=== PATIENT | male | born 1990 | race Caucasian/White ===

== ENCOUNTER 2024-04-07 18:44 | Inpatient (IN) ==
--- NOTE | 2024-04-07 18:49 | ED Triage Note ---
Date of Service April 07, 2024 Provider in Triage Author: Chico Mathews History of Present Illness This patient was briefly evaluated while in triage. An abbreviated physical exam was performed. This patient is a 33-year-old Male who presents to the ED for evaluation Friday afternoon developed shortness of breath, vomiting and diarrhea, shaky, chest pressure had shoveled snow continued left chest tightness Physical Exam GENERAL: NAD CARDIOVASCULAR: RRR RESPIRATORY: CTA ABDOMEN: BS x 4. Nontender to palpation. Initial orders for labs and / or imaging were placed and patient was placed in the waiting area until a bed is available. Please see further documentation for the full ED course.
[2024-04-07 19:23] LABS: Basophils # (auto) 0.02 K/uL (0.00-0.20); Basophils % (auto) 0.4 %; Eosinophils # (auto) 0.18 K/uL (0.00-0.50); Eosinophils % (auto) 3.3 %; Hematocrit (blood only) 44.5 % (42.0-52.0); Hemoglobin 15.3 g/dl (14.0-18.0); Immature Granulocytes # (auto) 0.01 K/uL (0.01-0.20); Immature Granulocytes % (auto) 0.2 %; Lymphocytes # (auto) 1.73 K/uL (1.20-3.40); Lymphocytes % (auto) 32.1 %; Mean Corpuscular Hemoglobin 29.8 pg (25.0-34.0); Mean Corpuscular Hgb Conc 34.4 g/dL (32.0-36.0); Mean Corpuscular Volume 86.7 fL (80.0-100.0); Mean Platelet Volume 8.7 fL (9.4-12.4); Monocytes # (auto) 0.93 K/uL (0.11-0.59); Monocytes % (auto) 17.3 %; Neutrophils # (auto) 2.52 K/uL (1.40-6.50); Neutrophils % (auto) 46.7 %; Platelet Count 233 K/uL (130-400); RDW Coefficient of Variation 12.9 % (11.5-14.5); RDW Standard Deviation 40.6 fL (36.4-46.3); Red Blood Count 5.13 M/uL (4.70-6.10); White Blood Count 5.39 K/ul (4.8-10.8)
[2024-04-07 19:33] LABS: Albumin Globulin Ratio 1.6 (0.9-2); Albumin Level 4.5 gm/dl (3.4-5.0); BUN Creatinine Ratio 10.6 (10-20); Bilirubin,Total 0.5 mg/dl (0.2-1.0); Calcium 8.6 mg/dl (8.6-10.3); Creatinine Clr Calc Pharmacy 92.8 ml/min; Globulin 2.8 gm/dl (2.5-4.0); Potassium 3.1 mmol/L (3.5-5.1); Total Protein 7.3 gm/dl (6.0-8.3)
[2024-04-07 19:44] LABS: Troponin I High Sensitivity 188.6 pg/ml (0-20)
--- NOTE | 2024-04-07 20:05 | Emergency Department Note ---
History of Present Illness General Chief Complaint: Cardiac Assessment Stated Complaint: CHEST TIGHTNESS, Time Seen by Provider: 04/07/24 19:52 History of Present Illness Provider Complaint: chest pain Onset (ago): day(s) 2 Duration: intermittent Onset: during exertion (Occurred after shoveling snow) Pain Location: substernal Pain Radiation: none Maximum Pain Intensity: 2 Current Pain Intensity: 1 Quality: + heaviness Relieved By: + rest Exacerbated By: + exertion Context: no recent illness, no recent surgery, no recent immobilization, no recent travel, no trauma/injury or no history of DVT/PE Associated symptoms: + nausea, + vomiting, + dyspnea and + other (Diarrhea); no syncope, no fever or no cough No melena hematochezia fever hematuria. No hemoptysis. Allergies Allergy/AdvReac Type Severity Reaction Status Date / Time No Known Allergies Allergy Verified 04/07/24 18:50 Past Med/Surg History Problem List (Updated 04/07/24 @ 20:46 by Nelson Teran MD) Non-ST elevation [place] (NSTEMI) (Acute) Medical History No pertinent family history No significant past medical history Surgical History No pertinent past surgical history Social History Smoking Status: Never smoker Feels Safe at Home: Yes Physical Exam Vital Signs Vital Signs - 24 hr 04/07/24 18:47 04/07/24 19:01 04/07/24 19:40 Temperature 36.7 C Temperature Source Temporal Artery Scan Pulse Rate 93 H Pulse Rate [Right Finger] 86 Pulse Rhythm Pulse Rhythm [Right Finger] Regular Pulse Strength [Right Finger] Normal Respiratory Rate 16 14 Respiratory Effort / Characteristics Non-Labored Spontaneous Non-Labored Respiratory Depth Normal Normal Respiratory Pattern Regular Blood Pressure 138/86 Blood Pressure [Left Arm] 135/80 Blood Pressure Mean 103 Blood Pressure Mean [Left Arm] 98 Blood Pressure Position Sitting Blood Pressure Position [Left Arm] Lying Pulse Oximetry 99 99 100 Oxygen Delivery Method Room Air Room Air Sepsis Recent Fever Within 48 Hours No Sepsis New/Unexplained Change in Mental Status N/A Sepsis Action Taken by Nursing No Action Required 04/07/24 19:40 04/07/24 19:54 Temperature Temperature Source Pulse Rate 86 88 Pulse Rate [Right Finger] Pulse Rhythm Regular Pulse Rhythm [Right Finger] Pulse Strength [Right Finger] Respiratory Rate 17 Respiratory Effort / Characteristics Respiratory Depth Respiratory Pattern Blood Pressure Blood Pressure [Left Arm] Blood Pressure Mean Blood Pressure Mean [Left Arm] Blood Pressure Position Blood Pressure Position [Left Arm] Pulse Oximetry 99 Oxygen Delivery Method Room Air Sepsis Recent Fever Within 48 Hours Sepsis New/Unexplained Change in Mental Status Sepsis Action Taken by Nursing Physical Exam GENERAL: oriented to person, place, and time. appears well-developed and well- nourished. HENT: Exam performed. - Head: Normocephalic and atraumatic. EYES: Conjunctivae and EOM are normal. Right eye exhibits no discharge. Left eye exhibits no discharge. No scleral icterus. NECK: Normal range of motion. Neck supple. No JVD present. CV: Normal rate, regular rhythm, normal heart sounds and intact distal pulses. There is no peripheral edema. Palpable radial pulses bue. PULM/CHEST: Effort normal and breath sounds normal. No respiratory distress. No stridor. no wheezes. no rales. ABD: The abdomen is soft. There is no tenderness. NEURO: Motor and sensation grossly intact. SKIN: Skin is warm and dry. He is not diaphoretic. PSYCH: normal mood and affect. Behavior is normal. Judgment and thought content normal. Course Course 1951: The patient was evaluated in room C6. A complete history and physical exam was performed Cardiac monitoring: An order was placed for continuous cardiac monitoring. The monitor shows a rate of 70 with sinus rhythm interpreted by me Patient was seen during a time of extreme volume and extreme acuity. Nursing triage protocols were initiated labs and imaging was conducted by protocol in the triage area. Vital signs stable. Patient not currently reporting any chest pain.Labs are significant for potassium 3.1, keep potassium repleted in the emergency department. High-sensitivity troponin elevated 180.6. Patient not reporting any chest pain or difficulty breathing at this time. Patient will be admitted to the hospitalist team for cardiology evaluation in the morning. 2009: Discussed case with [facility] hospitalist Dr. Person who asks that I speak with cardiology if we should start heparin on the patient. 2032: Vital signs stable. Patient reports no chest pain or difficulty breathing at this time. He reports no drug or cocaine usage. Discussed case with on-call [facility] cardiology Dr. More and he states to start heparin on the patient since there is no contraindication. Heparin bolus and drip will be ordered. Dr. Person at bedside and was made aware of Dr. More's recommendations. Administered Medications Discontinued Medications Aspirin (Aspirin 81 Mg Chew) 324 mg PO NOW STA Stop: 04/07/24 20:06 Last Admin: 04/07/24 20:10 Dose: 324 mg Documented By: SUZANNA Potassium Chloride (Potassium Chloride 10 Meq Tabcr) 40 meq PO NOW STA Stop: 04/07/24 20:06 Last Admin: 04/07/24 20:10 Dose: 40 meq Documented By: SUZANNA Medical Decision Making Laboratory Data Attestation: I reviewed the patient's lab results. 04/07/24 19:05 04/07/24 19:05 Labs: Lab Results 04/07/24 Range/Units 19:05 WBC 5.39 (4.8-10.8) K/ul RBC 5.13 (4.70-6.10) M/uL Hgb 15.3 (14.0-18.0) g/dl Hct 44.5 (42.0-52.0) % MCV 86.7 (80.0-100.0) fL MCH 29.8 (25.0-34.0) pg MCHC 34.4 (32.0-36.0) g/dL RDW Std Deviation 40.6 (36.4-46.3) fL RDW Coeff of Rachel 12.9 (11.5-14.5) % Plt Count 233 (130-400) K/uL MPV 8.7 L (9.4-12.4) fL Immature Gran % (Auto) 0.2 % Neut % (Auto) 46.7 % Lymph % (Auto) 32.1 % [place] % (Auto) 17.3 % Eos % (Auto) 3.3 % Baso % (Auto) 0.4 % Neut # (Auto) 2.52 (1.40-6.50) K/uL Lymph # (Auto) 1.73 (1.20-3.40) K/uL [place] # (Auto) 0.93 H (0.11-0.59) K/uL Eos # (Auto) 0.18 (0.00-0.50) K/uL Baso # (Auto) 0.02 (0.00-0.20) K/uL Immature Gran # (Auto) 0.01 (0.01-0.20) K/uL Sodium 138 (136-145) mmol/L Potassium 3.1 L (3.5-5.1) mmol/L Chloride 103 (98-107) mmol/L Carbon Dioxide 27 (21-32) mmol/L Anion Gap 8 (3-11) BUN 9 (6-23) mg/dl Creatinine 0.85 (0.6-1.4) mg/dl Est Cr Clr Drug Dosing 92.8 ml/min eGFR 118.40 BUN/Creatinine Ratio 10.6 (10-20) Glucose 95 (70-99(Fasting)) mg/dl Calcium 8.6 (8.6-10.3) mg/dl Total Bilirubin 0.5 (0.2-1.0) mg/dl AST 37 (13-39) U/L ALT 55 H (7-52) U/L Alkaline Phosphatase 64 (34-104) U/L Troponin I High Sens 188.6 H* (0-20) pg/ml Total Protein 7.3 (6.0-8.3) gm/dl Albumin 4.5 (3.4-5.0) gm/dl Globulin 2.8 (2.5-4.0) gm/dl Albumin/Globulin Ratio 1.6 (0.9-2) Imaging Data Chest x-ray: Attestation: I personally reviewed and interpreted this imaging study as follows: My impression: Chest x-ray negative. Airway clear. No pneumothorax. No consolidation. No cardiomegaly or cephalization.. No free air under the diaphragm. No fractures of the skeletal structures. ECG Data Attestation: I personally reviewed and interpreted this ECG as follows: Indication: chest pain Rate (beats per minute): 70 Rhythm: normal sinus Findings: no ST depression, no ST elevation or no prolonged QT Additional Comments: MO 104 QRS 90 QTc [address]. No delta wave [facility] Narrative 1951: The patient was evaluated in room C6. A complete history and physical exam was performed Cardiac monitoring: An order was placed for continuous cardiac monitoring. The monitor shows a rate of 70 with sinus rhythm interpreted by me Patient was seen during a time of extreme volume and extreme acuity. Nursing triage protocols were initiated labs and imaging was conducted by protocol in the triage area. Vital signs stable. Patient not currently reporting any chest pain.Labs are significant for potassium 3.1, keep potassium repleted in the emergency department. High-sensitivity troponin elevated 180.6. Patient not reporting any chest pain or difficulty breathing at this time. Patient will be admitted to the hospitalist team for cardiology evaluation in the morning. 2009: Discussed case with [facility] hospitalist Dr. Person who asks that I speak with cardiology if we should start heparin on the patient. 2032: Vital signs stable. Patient reports no chest pain or difficulty breathing at this time. He reports no drug or cocaine usage. Discussed case with on-call [facility] cardiology Dr. More and he states to start heparin on the patient since there is no contraindication. Heparin bolus and drip will be ordered. Dr. Person at bedside and was made aware of Dr. More's recommendations. Impression & Plan Non-ST elevation [place] (NSTEMI) Critical Care Time Critical Care Time: Yes Total Critical Care Time: 38 I have personally spent greater than [] minutes of critical care time in the direct management of this patient. This includes bedside care, interpretation of diagnostic studies, and testing, discussion with consultants, patient, and family members, and other required patient management activities. This [] minutes is in excess of all separately billable procedures. Discharge Plan Visit Data Chief Complaint: Cardiac Assessment Stated Complaint: CHEST TIGHTNESS, ED Provider: Nelson Teran Discharge Problem: Non-ST elevation [place] (NSTEMI) Patient Disposition: Being Evaluated by Hospitalist Forms Stand Alone Forms: My [facility] Referrals Referrals: PCP,NO [Physician] - Discharge Problem:
[2024-04-07] MEDS: POTASSIUM CHLORIDE 10 MEQ TABCR PO STA (20:10)
[2024-04-07] MEDS: ASPIRIN 81 MG CHEW PO STA (20:10)
[2024-04-07] MEDS ORDERED: HEPARIN SOD (PORCINE) 1000 UNIT/ML IV ONE (20:48)
--- NOTE | 2024-04-07 20:56 | History & Physical Report ---
Date of Service April 07, 2024 Assessment & Plan (1) Non-ST elevation [place] (NSTEMI): Plan: 33-year-old male with no significant past medical history presents with chest pains and found to have elevated troponins. Patient states last Friday morning after he shoveled snow he felt somewhat off. Then in the afternoon he started to feel chest heaviness, shortness of breath, was feeling dizzy ,somewhat sweaty and numbness in the hands and feet. Then he had a episode of diarrhea and then vomiting. After vomiting his chest heaviness seems to improved and then he had another episode of vomiting. He thought he might had food poisoning. He woke up on Friday morning with some chest soreness which he thought was from vomiting and he took half dose of ibuprofen and another full dose of ibuprofen in the night and chest pain got resolved. Today he wanted to check out because of the chest pain and shortness of breath and came to the ER. Currently has some mild discomfort in the left side of the chest but otherwise no other symptoms. Micturating okay. Day afebrile. Denies any headache. No runny nose or sore throat. No cough. Is ambulating okay. Denies any chest discomfort while ambulating. No history of smoking. Currently resting comfortably and hemodynamically stable. Appetite is down since Friday. Non-ST elevated [place] Presents with chest pain and shortness of breath Symptoms happened after snow shoveling Currently mostly asymptomatic EKG no acute findings Initial troponin 188 Got full dose aspirin in ER and started on IV heparin Will monitor on telemetry Will follow serial cardiac enzymes and echo and d dimer Will keep him n.p.o. Consult cardiology in a.m. for further recommendations Close monitor DVT prophylaxis On IV heparin Disposition Telemetry Full code. History of Present Illness Chief Complaint: Chest pains and elevated troponin Primary Care Provider: Megan Christian PA-C 33-year-old male with no significant past medical history presents with chest pains and found to have elevated troponins. Patient states last Friday morning after he shoveled snow he felt somewhat off. Then in the afternoon he started to feel chest heaviness, shortness of breath, was feeling dizzy ,somewhat sweaty and numbness in the hands and feet. Then he had a episode of diarrhea and then vomiting. After vomiting his chest heaviness seems to improved and then he had another episode of vomiting. He thought he might had food poisoning. He woke up on Friday morning with some chest soreness which he thought was from vomiting and he took half dose of ibuprofen and another full dose of ibuprofen in the night and chest pain got resolved. Today he wanted to check out because of the chest pain and shortness of breath and came to the ER. Currently has some mild discomfort in the left side of the chest but otherwise no other symptoms. Micturating okay. Day afebrile. Denies any headache. No runny nose or sore throat. No cough. Is ambulating okay. Denies any chest discomfort while ambulating. No history of smoking. Currently resting comfortably and hemodynamically stable. Appetite is down since Friday. Past medical history. As mentioned above Past surgical history. No surgical history on file. Social history. Denies smoking. Alcohol 3 drinks a week. Denies any drug use. Family history. Mother had breast cancer. Skin cancer. Father had depression. Hearing loss. Maternal grandmother had migraines. Skin cancer. Maternal grandfather had bladder cancer. Paternal grandmother had skin cancer. Allergies Allergy/AdvReac Type Severity Reaction Status Date / Time No Known Allergies Allergy Verified 04/07/24 18:50 Home Medications Medication Instructions Recorded Confirmed Type No Known Home Medications 04/07/24 04/07/24 History Past Med/Surg History Problem List (Updated 04/07/24 @ 20:46 by Nelson Teran MD) Non-ST elevation [place] (NSTEMI) (Acute) Medical History No pertinent family history No significant past medical history Surgical History No pertinent past surgical history Social History Smoking Status: Never smoker Second Hand Exposure: No; Do You Dip or Chew Tobacco: No; Tobacco Cessation Education Requested by Patient: No Hx Alcohol Use: Yes Alcohol type: beer Hx Substance Use: No Preferred Language: Greek Communication Ability: Effective 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 ENT- oropharynx clear Neck- supple, no JVD. Lungs- clear to auscultation no wheezing or crackles Heart- regular rate and rhythm; no murmur, no gallop. Abdomen- normal bowel sounds, soft, nontender, no distension. Extremities- no pretibial edema, no erythema seen. Neuro- alert, oriented ; PERRL, no facial palsy; no dysarthria; moves e xtremities. Results & Data Results & Data Vital Signs (Past 12 Hours) Vital Signs Temp Pulse Pulse Resp BP BP Pulse Ox 04/07/24 19:54 88 04/07/24 19:40 86 17 99 04/07/24 19:40 86 14 135/80 100 04/07/24 19:01 99 04/07/24 18:47 36.7 C 93 H 16 138/86 99 O2 Del Method 04/07/24 19:54 04/07/24 19:40 Room Air 04/07/24 19:40 Room Air 04/07/24 19:01 04/07/24 18:47 Room Air Diagnostic Findings Laboratory Results WBC 5.39 K/ul (4.8-10.8) 04/07/24 19:05 RBC 5.13 M/uL (4.70-6.10) 04/07/24 19:05 Hgb 15.3 g/dl (14.0-18.0) 04/07/24 19:05 Hct 44.5 % (42.0-52.0) 04/07/24 19:05 MCV 86.7 fL (80.0-100.0) 04/07/24 19:05 MCH 29.8 pg (25.0-34.0) 04/07/24 19:05 MCHC 34.4 g/dL (32.0-36.0) 04/07/24 19:05 RDW Std Deviation 40.6 fL (36.4-46.3) 04/07/24 19:05 RDW Coeff of Rachel 12.9 % (11.5-14.5) 04/07/24 19:05 Plt Count 233 K/uL (130-400) 04/07/24 19:05 MPV 8.7 fL (9.4-12.4) L 04/07/24 19:05 Immature Gran % (Auto) 0.2 % 04/07/24 19:05 Neut % (Auto) 46.7 % 04/07/24 19:05 Lymph % (Auto) 32.1 % 04/07/24 19:05 [place] % (Auto) 17.3 % 04/07/24 19:05 Eos % (Auto) 3.3 % 04/07/24 19:05 Baso % (Auto) 0.4 % 04/07/24 19:05 Neut # (Auto) 2.52 K/uL (1.40-6.50) 04/07/24 19:05 Lymph # (Auto) 1.73 K/uL (1.20-3.40) 04/07/24 19:05 [place] # (Auto) 0.93 K/uL (0.11-0.59) H 04/07/24 19:05 Eos # (Auto) 0.18 K/uL (0.00-0.50) 04/07/24 19:05 Baso # (Auto) 0.02 K/uL (0.00-0.20) 04/07/24 19:05 Immature Gran # (Auto) 0.01 K/uL (0.01-0.20) 04/07/24 19:05 Sodium 138 mmol/L (136-145) 04/07/24 19:05 Potassium 3.1 mmol/L (3.5-5.1) L 04/07/24 19:05 Chloride 103 mmol/L (98-107) 04/07/24 19:05 Carbon Dioxide 27 mmol/L (21-32) 04/07/24 19:05 Anion Gap 8 (3-11) 04/07/24 19:05 BUN 9 mg/dl (6-23) 04/07/24 19:05 Creatinine 0.85 mg/dl (0.6-1.4) 04/07/24 19:05 Est Cr Clr Drug Dosing 92.8 ml/min 04/07/24 19:05 eGFR 118.40 04/07/24 19:05 BUN/Creatinine Ratio 10.6 (10-20) 04/07/24 19:05 Glucose 95 mg/dl (70-99(Fasting)) 04/07/24 19:05 Calcium 8.6 mg/dl (8.6-10.3) 04/07/24 19:05 Total Bilirubin 0.5 mg/dl (0.2-1.0) 04/07/24 19:05 AST 37 U/L (13-39) 04/07/24 19:05 ALT 55 U/L (7-52) H 04/07/24 19:05 Alkaline Phosphatase 64 U/L (34-104) 04/07/24 19:05 Troponin I High Sens 188.6 pg/ml (0-20) H* 04/07/24 19:05 Total Protein 7.3 gm/dl (6.0-8.3) 04/07/24 19:05 Albumin 4.5 gm/dl (3.4-5.0) 04/07/24 19:05 Globulin 2.8 gm/dl (2.5-4.0) 04/07/24 19:05 Albumin/Globulin Ratio 1.6 (0.9-2) 04/07/24 19:05 ECG Additional Comments: ECG. Normal sinus rhythm with short IA rate of 70. No acute ST changes seen. Code Status & VTE Plan VTE Prophylaxis Plan VTE Prophylaxis will be ordered: Yes
[2024-04-07] MEDS: HEPARIN SOD (PORCINE) 1000 UNIT/ML IV ONE (21:14)
[2024-04-07] MEDS: HEPARIN SODIUM/DEXTROSE 25,000 UNITS/500 ML BAG IV SCH (21:15)
[2024-04-07 21:16] LABS: Amphetamines+Metham, Urine Neg (Neg); Barbiturates, Urine Neg (Neg); Benzodiazepine, Urine Neg (Neg); Cocaine, Urine Neg (Neg); Fentanyl, Urine Neg (Neg); MDMA (Ecstacy), Urine Neg (Neg); Marijuana, Urine Neg (Neg); Methadone, Urine Neg (Neg); Opiate, Urine Neg (Neg); Phencyclidine, Urine Neg (Neg)
--- NOTE | 2024-04-07 21:16 | XRay Report ---
Exam(s): XR CXR 1 VIEW EXAM: XR Chest, 1 View CLINICAL HISTORY: Chest Pain. TECHNIQUE: Frontal view of the chest. COMPARISON: No relevant prior studies available. FINDINGS: Lungs: Unremarkable. No consolidation. Pleural space: Unremarkable. No pneumothorax. Heart: Unremarkable. No cardiomegaly. Mediastinum: Unremarkable. Normal mediastinal contour. Bones/joints: Mild degenerative changes of the spine are noted. No acute fracture. IMPRESSION: No acute findings in the chest. Electronically signed by: Ana Hubbard MD 04/07/24 21:14 PM
[2024-04-07 21:58] LABS: ANTI-Xa, UFH(UnfractionatedHep < 0.10 IU/ml (0.3-0.7); D Dimer 280 ug/L FEU (0-500); Partial Thromboplastin Time 28 Seconds (21-31); Prothrombin Time 10.9 Seconds (9.0-12.0)
[2024-04-07] MEDS ORDERED: ACETAMINOPHEN 325 MG TAB PO PRN (22:13)
[2024-04-07] MEDS ORDERED: POLYETHYLENE (MIRALAX) 17 GM PACK PO PRN (22:13)
[2024-04-07] MEDS ORDERED: NITROGLYCERIN SL 0.4 MG/TAB TAB SL PRN (22:13)
[2024-04-07] MEDS ORDERED: INFLUENZA VACC TS2024-25(6m+)/PF (IIV3) 0.5mL Syr IM ONE (22:32)
[2024-04-08 03:59] LABS: Basophils # (auto) 0.02 K/uL (0.00-0.20); Basophils % (auto) 0.4 %; Eosinophils # (auto) 0.09 K/uL (0.00-0.50); Eosinophils % (auto) 1.8 %; Hematocrit (blood only) 42.6 % (42.0-52.0); Hemoglobin 14.6 g/dl (14.0-18.0); Lymphocytes # (auto) 1.99 K/uL (1.20-3.40); Lymphocytes % (auto) 40.8 %; Mean Corpuscular Hemoglobin 29.8 pg (25.0-34.0); Mean Corpuscular Hgb Conc 34.3 g/dL (32.0-36.0); Mean Corpuscular Volume 86.9 fL (80.0-100.0); Mean Platelet Volume 8.6 fL (9.4-12.4); Monocytes # (auto) 0.75 K/uL (0.11-0.59); Monocytes % (auto) 15.4 %; Neutrophils # (auto) 2.03 K/uL (1.40-6.50); Neutrophils % (auto) 41.6 %; Platelet Count 219 K/uL (130-400); RDW Coefficient of Variation 12.8 % (11.5-14.5); RDW Standard Deviation 40.5 fL (36.4-46.3); White Blood Count 4.88 K/ul (4.8-10.8)
[2024-04-08 04:17] LABS: BUN Creatinine Ratio 13.4 (10-20); Calcium 8.7 mg/dl (8.6-10.3); Chol HDL Ratio 1.9 (0-5); Creatinine Clr Calc Pharmacy 96.2 ml/min; Magnesium 2.1 mg/dl (1.7-2.4)
[2024-04-08 04:22] LABS: ANTI-Xa, UFH(UnfractionatedHep 0.44 IU/ml (0.3-0.7)
[2024-04-08 04:27] LABS: Troponin I High Sensitivity 146.2 pg/ml (0-20)
[2024-04-08] MEDS: Heparin IV Adult Wt-Based Low-Dose w/ INITIAL Bolus Protocol IV STA (05:29)
--- NOTE | 2024-04-08 08:39 | Cardiology Consultation ---
Date of Consultation April 08, 2024 Assessment & Plan (1) Elevated troponin: (2) Atypical chest pain: Plan 33-year-old male - No prior cardiac history - No significant risk factors - No family history of premature CAD - Preceding viral type illness - Atypical chest pain (? musculoskeletal +/- very mild myocarditis) - Mildly elevated and downtrending troponin - Benign telemetry Recommendations: Refer for resting echocardiography then likely stress testing. Supervising Physician Co-Signing Physician Notes I have personally performed a history and physical examination on the patient. I have reviewed the advance practitioner's documentation, and I agree with, and take responsibility for the plan of care. 33-year-old male with no prior cardiac history presenting to the emergency department with viral illness, nausea, vomiting, diarrhea and atypical, most likely musculoskeletal chest discomfort. Cardiology consultation was requested due to mildly elevated high-sensitivity troponin. ECG without ischemic changes. Echocardiogram demonstrates normal LV function and wall motion. No events on telemetry Further evaluation of elevated troponin discussed. Patient prefers to avoid any invasive procedures at this time. Agreeable to exercise stress echocardiography. Consider cardiac CT as outpatient. Further recommendations pending results of stress echo. Thank you for allow me to participate in the care of your patient. Chandler More DO, [facility] History of Present Illness Reason for Consultation: NSTEMI Requesting Physician: [facility] Hospitalist Dr. Raza Robb Attending Physician: [facility] Hospitalist Service, Dr. Manan Carballo MD History of Present Illness Gonzalo Ospina is a 33-year-old male patient who was in his usual state until he began to feel off on Friday, April 05, 2024. On Friday he awoke and felt OK. After breakfast he removed the snow from the driveway and did some normal things around the house. He notes moving furniture around to get ready for a chest freezer that was being delivered later that day. He notes not eating lunch due to feeling "off." Around 2-3 in the afternoon he noticed some heavy breathing. He describes feeling the need to take deeper breaths. He checked his temperature and found it to be normal. He has a home pulse oximetry and observed a normal heart rate as well as normal oxygen saturation of 97 to 87%. At that time he began to feel pressure across his whole entire chest as well as numbness in all extremities. He had his check him and say no facial droop and he notes no issues with his speech. He then began to feel shaky. He notes that he began to "freak out." He then sat down and watch TV with his . At that point he felt the need to use the bathroom and had what he describes as "fast and violent diarrhea" which was followed by some nausea and one episode of mild emesis. After the emesis he felt completely back to normal. Thereafter he picked up his daughter at daycare and went about his day. Later that night he had some recurrent nausea. He notes not sleeping well, awaking Friday to his entire chest and torso hurting, and ache. He took one half of the Advil with resolution of the discomfort, taking another Advil bed, also with benefit. Friday he stayed home because he did not have to go into work. He describes taking it easy and sleeping in the afternoon which is not something he normally does not do Thereafter he started to think and question his symptoms over the last couple of days and decided to present to the ER for further cardiac evaluation. EKG in the ER revealed sinus rhythm at 70 with a short W[place] interval. Isolated T wave inversion noted in V3. High-sensitivity troponin elevated at 188.6 pg/mL. Aspirin was administered in the ER and IV heparin was initiated. Repeat troponin was 183.6 pg/mL. The third troponin was 142.2 pg/mL. Chest x-ray showed no acute findings. EKG this morning reveals normal sinus rhythm at 75 bpm. Continuous telemetry monitoring revealed sinus/sinus tachycardia throughout, heart rates predominantly in the 60 to 100 bpm range. No significant arrhythmias observed. Up until Friday the patient had been active to his level preference without difficulty. He describes his activity level as "moderately active." He notes doing a 5K in September, running the race in 28 minutes without difficulty. He walks regularly. He notes hiking [employer] in January without difficulty. He describes himself as a stressed person, sort of a hypochondriac. No history of hypertension, dyslipidemia, type 2 diabetes mellitus, CAD, DE, CHF, arrhythmia, heart murmur, rheumatic fever, or scarlet fever. No family history of premature CAD or sudden cardiac . Past Medical and Surgical History Transient microscopic hematuria evaluated by urology, benign findings Family History: Father is alive without cardiac issues, history of gout. Mother had breast cancer diagnosed 24 years ago, now with stage IV bone cancer. Paternal grandparents lived into their late 80s or early 90s, details unknown. Maternal grandfather had bladder cancer, passing in his 70s. Maternal grandmother is alive at 93. Social History: Never smoker. No smokeless tobacco. Alcohol: 3 drinks per week typically. No illegal/illicit drug use. . 1 daughter. 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 Allergies Allergy/AdvReac Type Severity Reaction Status Date / Time No Known Allergies Allergy Verified 04/07/24 18:50 Home Medications Medication Instructions Recorded Confirmed Type No Known Home Medications 04/07/24 04/07/24 History Patient History Medical History No pertinent family history No significant past medical history Surgical History No pertinent past surgical history Social History Smoking Status: Never smoker Second Hand Exposure: No; Do You Dip or Chew Tobacco: No; Tobacco Cessation Education Requested by Patient: No Hx Alcohol Use: Yes Alcohol type: beer Hx Substance Use: No Preferred Language: Malay Communication Ability: Effective Outside Sales Engineer Required: No Beliefs That Will Affect Care: None Current Living Situation: Spouse and Family Other Information That Helps Us Care for You: No Feels Safe at Home: Yes Safety Concerns: Feels Safe At This Time Assistive Devices: None Review of Systems Review of Systems: Complete Review of Systems: Constitutional: No night sweats. HEENT: No amaurosis fugax. Pulmonary: No history of asthma. No history of PE. Cardiac: No prior cardiac history. GI/Abd: No dysphagia. No melana or hematochezia. No kidney problems. No liver problems. No history of pancreatic issues. Vascular: Cold distal extremities. Hematologic: No coagulation disorder, anemia, or abnormal bleeding. Musculoskeletal: Negative. Skin: No rash. Neurologic: No history of seizure disorder. Male : See above. Endocrine: No history of diabetes mellitus. No thyroid trouble. Complete Review of Systems is as stated above, negative, or noncontributory Physical Exam Physical Exam: General: A&Ox3. NAD. HENT: Normocephalic. Atraumatic. Eyes: PER. Conjunctiva pink, sclera clear. Neck: No carotid bruits. No JVD. No HJR. Heart: RRR, 84 bpm. No murmur. No rub. No gallop. PMI is nondisplaced. Lungs: Clear to auscultation. Abdomen: +BS. No organomegaly. Extremities: No clubbing, cyanosis, or edema. Limited neurological examination is without focal deficits. Pulses: radial=3/4, posterior tibial=3/4. Results & Data Vital Signs (Past 12 Hours) Vital Signs Temp Pulse Pulse Resp BP BP Pulse Ox 04/08/24 08:19 90 04/08/24 07:28 36.7 C 79 16 106/65 98 04/08/24 03:00 36.7 C 89 18 116/75 98 04/07/24 23:55 96 H 04/07/24 22:21 36.9 C 99 H 15 129/83 100 04/07/24 21:05 81 116/70 99 O2 Del Method 04/08/24 08:19 04/08/24 07:28 Room Air 04/08/24 03:00 Room Air 04/07/24 23:55 04/07/24 22:21 Room Air 04/07/24 21:05 Room Air Laboratory Results Cardiac Enzymes 04/07/24 04/07/24 04/08/24 Range/Units 19:05 21:06 03:44 AST 37 (13-39) U/L Troponin I High Sens 188.6 H* 183.6 H* 146.2 H* D (0-20) pg/ml Coagulation 04/07/24 Range/Units 20:51 PT 10.9 (9.0-12.0) Seconds APTT 28 (21-31) Seconds Lipids 04/08/24 Range/Units 03:44 Triglycerides 65 (0-150) mg/dl Cholesterol 134 (0-200) mg/dl HDL Cholesterol 70 mg/dl Cholesterol/HDL Ratio 1.9 (0-5) CBC 04/07/24 04/08/24 Range/Units 19:05 03:44 WBC 5.39 4.88 (4.8-10.8) K/ul RBC 5.13 4.90 (4.70-6.10) M/uL Hgb 15.3 14.6 (14.0-18.0) g/dl Hct 44.5 42.6 (42.0-52.0) % Plt Count 233 219 (130-400) K/uL Neut # (Auto) 2.52 2.03 (1.40-6.50) K/uL Lymph # (Auto) 1.73 1.99 (1.20-3.40) K/uL [place] # (Auto) 0.93 H 0.75 H (0.11-0.59) K/uL Eos # (Auto) 0.18 0.09 (0.00-0.50) K/uL Baso # (Auto) 0.02 0.02 (0.00-0.20) K/uL Comprehensive Metabolic Panel 04/07/24 04/08/24 Range/Units 19:05 03:44 Sodium 138 140 (136-145) mmol/L Potassium 3.1 L 4.0 D (3.5-5.1) mmol/L Chloride 103 107 (98-107) mmol/L Carbon Dioxide 27 24 (21-32) mmol/L BUN 9 11 (6-23) mg/dl Creatinine 0.85 0.82 (0.6-1.4) mg/dl Glucose 95 90 (70-99(Fasting)) mg/dl Calcium 8.6 8.7 (8.6-10.3) mg/dl AST 37 (13-39) U/L ALT 55 H (7-52) U/L Alkaline Phosphatase 64 (34-104) U/L Total Protein 7.3 (6.0-8.3) gm/dl Albumin 4.5 (3.4-5.0) gm/dl Intake and Output 04/07/24 04/08/24 04/08/24 22:59 06:59 14:59 Intake Total 107.033 / 107.033 20.367 / 20.367 Balance 107.033 / 107.033 20.367 / 20.367 Intake: IV 107.033 / 107.033 20.367 / 20.367 Heparin Sodium/Dextrose 25,000 107.033 / 107.033 20.367 / 20.367 units In 500 ml @ 650 UNITS/HR 13 mls/hr IV .Q24H [facility] Rx#: [id number] Other: Weight 52.6 kg 50.439 kg Weight Measurement Method [facility] Built in [facility]
[2024-04-08] MEDS: ASPIRIN 81 MG ECTAB PO SCH (09:32)
--- OUTSIDE RECORDS SUMMARY | 2024-04-08 10:30 | External Medical Summary ---
Author Name Unknown Address Unknown Organization [id number][place] [place] [address] [place] [address] Laboratory Report Ordering Provider Test Date Status 10/15/2023 15:37:04 Final Observation Date Value Abnormality Reference (Units) Status Bacteria identified in Specimen by Culture 10/15/2023 15:37:04 No significant growth Final Test: Culture, Urine, Quant itative
Specimen Source: Urine, Clean Catch
Specimen Type: Urine
Specimen Date: 10/15/2023 1537
Result Date: 10/16/2023 1804
Result Status: Final result
Resulting Lab: [facility]
[address]
[place] [address]

CULTURE

No significant growth

null Performing Location [facility] [place] [address] [facility] [address]
--- OUTSIDE RECORDS SUMMARY | 2024-04-08 10:30 | External Medical Summary | Summary of Care ---
Author Name Unknown Organization [facility] Address [address] [facility] [place] [address] Phone [phone] Care Team Providers Care Ingredient Handler Name Role Phone Unavailable Primary Care Provider Unavailabl e Reason for Visit * Reason Comments Outpatient Testing Encounter Details Date Type Department Care Team (Late st Contact Info) Description 10/15/2023 3:20 PM EDT Laboratory Laboratory [facility] [address] [place] [address] [facility] [address] [place] [id number] Urinary frequency Allergies No known active allergiesdocumented as of this encounter (statuses as of 10/15/2023) Medications No known medicationsdocumented as of this encounter (statuses as of 10/15/2023) Active Problems Problem Noted Date Diagnosed Date Post-void dribbling 07/15/2023 Microhematuria 07/15/2023 documented as of this encounter (statuses as of 10/15/2023) Immunizations Name Administration Dates Next Due Seasonal Influenza, PF, 6 M & above, IM , (FluLaval or Fluzone) 03/28/2022 TDAP (age 10 and older)(Boostrix) 09/27/2022,04/2012 documented as of this encounter Social History Tobacco Use Types Packs/Day Years Used Date Smoking Tobacco: Never Smokeless Tobacco: Never Alcohol Use Standard Drinks/Week Comments Yes 5 (1 standard drink = 0.6 oz pur e alcohol) occasional Hunger Vital Sign Answer Date Recorded Within the past 12 months, y ou worried that your food would run out before you got the money to buy more. Never true 08/11/19 24 Within the past 12 months, t he food you bought just didn't last and you didn't have money to get more. Never true 08/11/2023 Childcare Answer Date Recorded Do you feel overwhelmed with taking care of a child, family member or friend? No 08/11/2023 Does your family need help f inding childcare? (Household - for ages 0-17 years) Not on file 08/11/2023 Clothing Answer Date Recorded Have you been unable to get clothing when it was really needed? No 08/11/2023 Is your family able to get c lothes or diapers when needed? (Household - for ages 0-17 years) Not on file 08/11/2023 Personal Safety Answer Date Recorded Do you feel unsafe or have concerns for your saf ety? No 08/11/2023 Do you have concerns for you r family's safety? (Household - for ages 0-17 years) Not on file 08/11/2023 Utilities Answer Date Recorded Do you have trouble paying y our heating, water, or electric bill? No 08/11/2023 Is your family able to pay t he heat, water, or electric bill? (Household - for ages 0-17 years) Not on file 08/11/2023 Does your family have access to good internet? (Household - for ages 0-17 years) Not on file 08/11/2023 Employment Status Answer Date Recorded Are you unemployed or without regular income? No 08/11/2023 Does the household have a re gular source of income? (Household - for ages 0-17 years) Not on file 08/11/2023 Social Connections Answer Date Recorded How often do you feel lonely or isolated from those around you? Sometimes 08/11/2023 Financial Resource Strain Answer Date R ecorded Do you have any trouble payi ng for your medications, or do you think you might in the future? No 08/11/2023 Does your family have troubl e paying for medicine? (Household - for ages 0-17 years) Not on file 08/11/2023 Transportation Needs Answer Date Record ed READ ONLY Do you have troubl e getting a ride to medical visits or work? Never True 08/11/2023 Does your family have a hard time getting a ride to doctors visits? (Household - for ages 0-17 years) Not on file 08/11/2023 Has lack of transportation k ept you from medical appointments, meetings, work, or from getting things needed for daily living? Check all that apply. (Adult - for ages 18 years and over) Not on file 08/11/2023 Do you (or your family) have trouble finding or paying for a ride (transportation)? (Household - for ages 0-17 years) Not on file 08/11/2023 Housing Stability Answer Date Recorded Do you currently live in a s helter or have no steady place to sleep at night? No 08/11/2023 READ ONLY Do you think you a re at risk of becoming homeless? No 08/11/2023 Does your family worry about paying for your home or becoming homeless? (Household - for ages 0-17 years) Not on file 0 08/11/2023 Are you homeless or worried that you might be in the future? (Adult - for ages 18 years and over) Not on file Are you (or your family) janice eless or worried that you might be in the future? (Household - for ages 0-17 years) Not on file Food Insecurity Answer Date Recorded Do you need food for this week? No 08/11/2023 Are you able to get enough f ood for your family? (Household - for ages 0-17 years) Not on file 08/11/2023 Does your family need food t his week? (Household - for ages 0-17 years) Not on file 08/11/2023 Do you always have enough fo od for your family? (Household - for ages 0-17 years) Not on file 08/11/2023 Sex and Gender Information Value Date Recorded Sex Assigned at Male 08/11/2023 8:54 AM EDT Gender Identity Male 08/11/2023 8:54 AM EDT Sexual Orientation Straight 08/11/2023 8: 54 AM EDT Job Start Date Occupation Industry Not on file Not on file Not on file documented as of this encounter Plan of Treatment Pending Results Name Type Priority Associated Diagnoses Date /Time URINALYSIS, REFLEX TO MICROSCOPIC Lab Routine Urinary frequency 10/15/2023 3:37 PM EDT CULTURE, URINE, QUANTITATIVE Lab Routine Urinary frequency 10/15/2023 3:37 PM EDT Health Maintenance Due Date Last Done Comments Depression Screening 2003 HIV Screening 12/05/2006 Hepatitis C Screening 12/05/2009 Hepatitis B (1 of 3 - 19+ 3-dose series) 12/05/2010 COVID-19 Vaccine (2022-2 4 season) 2022 DTaP,Tdap,and Td Vaccines (3 - Td or Tdap) 09/27/2032 09/27/2022, 04/21/2012 Influenza Vaccine (FLU shot) Completed , 03/28/2022 GARDASIL-HPV IMMUNIZATION SERIES Aged Out No longer eligible b ased on patient's age to complete this topic MENINGOCOCCAL (MENACTRA/MENVEO) Aged Out No longer eligible b ased on patient's age to complete this topic Pneumococcal Vaccine: Pediatrics (0 to 5 Years) and At-Risk Patients (6 to 64 Years) Aged Out No longer eligible b ased on patient's age to complete this topic documented as of this encounter Medical Devices Not on filedocumented as of this encounter Visit Diagnoses Diagnosis Urinary frequency documented in this encounter
--- OUTSIDE RECORDS SUMMARY | 2024-04-08 10:30 | External Medical Summary ---
Author Name Unknown Address Unknown Organization K01[place] [place] [address] [facility] [address] Laboratory Report Ordering Provider Test Date Status 10/15/2023 15:37:04 Final Observation Date Value Abnormality Reference (Units ) Status Color of Urine by Auto 10/15/2023 15:37:04 Colorless Colorless, Light Yellow, Yellow, Dark Yellow Final Clarity, Urine 10/15/2023 15:37:04 Clear Clear Final Glucose [Mass/volume] in Urine by Automated test strip 10/15/2023 15:37:04 Negative Negative (mg/dL) Final Bilirubin.total [Presence] in Urine by Automated test strip 10/15/2023 15:37:04 Negative Negative Final Ketones [Mass/volume] in Urine by Automated test strip 10/15/2023 15:37:04 Negative Negative (mg/dL) Final Specific gravity, Urine 10/15/2023 15:37:04 1.005 1.003-1.030 Final Hemoglobin [Presence] in Urine by Automated test strip 10/15/2023 15:37:04 Negative Negative Final pH, Urine 10/15/2023 15:37:04 7.0 5.0-7.5 (Units) Final Protein [Mass/volume] in Urine by Automated test strip 10/15/2023 15:37:04 Negative Negative (mg/dL) Final Urobilinogen [Mass/volume] in Urine by Automated test strip 10/15/2023 15:37:04 Normal Normal (mg/dL) Final Nitrite [Presence] in Urine by Automated test strip 10/15/2023 15:37:04 Negative Negative Final Leukocyte esterase [Presence] in Urine by Automated test strip 10/15/2023 15:37:04 Negative Negative Final Annotation Comment 10/15/2023 15:37:04 Final Screen negative - Microscopi c not performed. Performing Location [facility] - [address] [facility] [address]
--- OUTSIDE RECORDS SUMMARY | 2024-04-08 10:30 | External Medical Summary | Summary of Care ---
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 Press Operator Name Role Phone Unavailable Primary Care Provider Unavailabl e Reason for Visit * Reason Onset Date Comments Advice 10/14/2023 Encounter Details Date Type Department Care Team (Late st Contact Info) Description 10/14/2023 Telephone Family Practice [facility] [address] [facility] [place] [address] Megan Christian PA-C [address] [facility] [place] [address] Advice Allergies No known active allergiesdocumented as of [...] on file documented as of this encounter Miscellaneous Notes * Telephone Encounter - Sanjuana Mariscal, ILEANA - 10/15/2023 2:18 PM EDT Patient aware and verbalized understanding * Telephone Encounter - Megan Christian PA-C - 10/14/2023 7:35 PM EDT Orders placed. Please inform patient. * Telephone Encounter - Kelle Chauhan RN - 10/14/2023 3:47 PM EDT Copied from Call Details: Patient Gender: Male Testicular Pain: Yes Frequent Urination: Yes Other Symptoms: possibly some slight urine leakage with minor increase in frequency and urge How long have you had these symptoms(s)? approx 1 month Any recent antibiotic use? No Have you tried any over the counter remedies? No Patient's Action(s) What have you done or taken for this problem? Patient advises if no clinic OV is needed and only urinalysis is ordered / recommended will complete that DAYNA as well Hx of post void dribbling, microhematuria. No available appts. Do you want to put in orders? * Telephone Encounter - Eunice Luna OSA - 10/14/2023 11:48 AM EDT No Appointments Available Patient declined appointments?: No What Visit Type is needed? Acute If Acute Visit Type is needed, were surrounding clinics offered to patient (Yes/No)? Yes Was patient offered appointments with other available providers (Yes/No)? Yes See Call Details? (Yes or No): Yes documented in this encounter Plan of Treatment Scheduled Orders Name Type Priority Associated Diagnoses Orde r Schedule URINALYSIS, REFLEX TO MICROSCOPIC Lab Routine Urinary frequency Expected: 10/14/2023, Expires: 10/13/2024 CULTURE, URINE, QUANTITATIVE Lab Routine Urinary frequency Expected: 10/15/2023, Expires: 10/13/2024 Health Maintenance Due Date Last Done Comments [...] of this encounter Visit Diagnoses Diagnosis Urinary frequency- Primary documented in this encounter"
[2024-04-08 11:28] VITALS: O2SAT 99
[2024-04-08 11:39] LABS: ANTI-Xa, UFH(UnfractionatedHep 0.27 IU/ml (0.3-0.7)
--- NOTE | 2024-04-08 15:00 | Hospitalist Progress Note ---
Date of Service April 08, 2024 Assessment & Plan (1) Elevated troponin: Plan: 33-year-old male with no significant past medical history presents with chest pains and found to have elevated troponins. Patient states last Friday morning after he shoveled snow he felt somewhat off. Then in the afternoon he started to feel chest heaviness, shortness of breath, was feeling dizzy ,somewhat sweaty and numbness in the hands and feet. Then he had a episode of diarrhea and then vomiting. After vomiting his chest heaviness seems to improved and then he had another episode of vomiting. He thought he might had food poisoning. He woke up on Friday morning with some chest soreness which he thought was from vomiting and he took half dose of ibuprofen and another full dose of ibuprofen in the night and chest pain got resolved. Today he wanted to check out because of the chest pain and shortness of breath and came to the ER. Currently has some mild discomfort in the left side of the chest but otherwise no other symptoms. Micturating okay. Day afebrile. Denies any headache. No runny nose or sore throat. No cough. Is ambulating okay. Denies any chest discomfort while ambulating. No history of smoking. Currently resting comfortably and hemodynamically stable. Appetite is down since Friday. Presents with chest pain and shortness of breath Symptoms happened after snow shoveling EKG no acute findings Initial troponin 188 and subsequent troponins were unremarkable Got full dose aspirin in ER and started on IV heparin Remains free from any cardiac symptoms since admission and did not have any arrhythmias on monitor Appreciate cardiology input and recommendation Will have a stress echo this afternoon and likely discharge following that DVT prophylaxis On IV heparin Disposition Telemetry Full Code (2) Atypical chest pain: Plan: The chest pain could be musculoskeletal and atypical His symptoms started following a viral illness and also with exertion the pain was noted to be worse with sweating as well (3) Non-ST elevation [place] (NSTEMI): Plan: Mildly elevated troponin without any EKG changes Echocardiogram demonstrates normal LV function and wall motion without any events in telemetry Non-ST elevation [place] has been ruled out Admission and Anticipated Discharge Date Admission Date: April 07, 2024 Subjective 04/08/2024 The patient was seen and examined in telemetry unit He was admitted with exertional chest pain associated with some sweating and dizziness Initial troponin was minimally elevated but subsequent sets did not show any increasing levels He denies any more chest pain since admission Review of Systems Review of Systems: All systems reviewed and are unremarkable except as noted below Physical Exam Physical Exam: Lying in bed without any acute distress Constitutional: average body habitus; not ill appearing Eyes: PERRL, conjunctivae normal, anicteric sclerae ENMT: external ear and nose normal, oropharynx normal Neck: trachea midline, no thyromegaly Respiratory: no respiratory distress Auscultation: lungs clear to auscultation bilaterally Cardiovascular: Rate/Rhythm: regular rate and regular rhythm; not tachycardic Heart Sounds: normal S1 and normal S2; no murmur Extremities: no edema Gastrointestinal (Abdomen): Inspection/Auscultation: normal bowel sounds; abdomen not distended Percussion/Palpation: abdomen soft; abdomen nontender Musculoskeletal: no cyanosis or clubbing, extremities motor strength 5/5 Neurologic: normal touch/pain/proprioception and moves all extremities; no focal motor deficits Lymphatic: no cervical or axillary lymphadenopathy Results & Data Results & Data Vital Signs (Past 12 Hours) Vital Signs Temp Pulse Pulse Resp BP BP Pulse Ox 04/08/24 11:27 36.9 C 68 18 109/71 99 04/08/24 08:19 90 04/08/24 07:28 36.7 C 79 16 106/65 98 04/08/24 03:00 36.7 C 89 18 116/75 98 O2 Del Method 04/08/24 11:27 Room Air 04/08/24 08:19 04/08/24 07:28 Room Air 04/08/24 03:00 Room Air Laboratory Results Short CBC 04/07/24 04/08/24 Range/Units 19:05 03:44 WBC 5.39 4.88 (4.8-10.8) K/ul Hgb 15.3 14.6 (14.0-18.0) g/dl Hct 44.5 42.6 (42.0-52.0) % Plt Count 233 219 (130-400) K/uL BMP 04/07/24 04/08/24 19:05 03:44 Sodium 138 140 Potassium 3.1 L 4.0 D Chloride 103 107 Carbon Dioxide 27 24 BUN 9 11 Creatinine 0.85 0.82 Glucose 95 90 Calcium 8.6 8.7 Liver Function 04/07/24 Range/Units 19:05 Total Bilirubin 0.5 (0.2-1.0) mg/dl AST 37 (13-39) U/L ALT 55 H (7-52) U/L Alkaline Phosphatase 64 (34-104) U/L Albumin 4.5 (3.4-5.0) gm/dl Medications Administered Current Inpatient Medications Acetaminophen (Acetaminophen 325 Mg Tab) 650 mg PO Q4H PRN PRN Reason: Pain or Fever Stop: 05/07/24 22:12 Aspirin (Aspirin 81 Mg Ectab) 81 mg PO QAM MADDY Stop: 05/08/24 08:59 Last Admin: 04/08/24 09:32 Dose: 81 mg Nitroglycerin (Nitroglycerin Sl 0.4 Mg/Tab Tab) 0.4 mg SL Q5M PRN PRN Reason: Chest Pain Stop: 05/07/24 22:12 Polyethylene Glycol (Polyethylene (Miralax) 17 Gm Pack) 17 gm PO DAILY PRN PRN Reason: Constipation Stop: 05/07/24 22:12
[2024-04-08 15:11] VITALS: BP 106/68; PULSE 79; RESP 16; TEMP 98.1
--- NOTE | 2024-04-08 19:01 | Electrocardiogram Report ---
Test Reason : Blood Pressure : */* mmHG Vent. Rate : 75 BPM Atrial Rate : 75 BPM P-R Int : 114 ms QRS Dur : 86 ms QT Int : 374 ms P-R-T Axes : 39 80 53 degrees QTcB Int : 417 ms Normal sinus rhythm Normal ECG When compared with ECG of 07-Apr-2024 18:56, No significant change was found Confirmed by Jorge Gr ([id number]) on 04/08/2024 7:01:22 PM Referred By: REFERRED SELF Confirmed By: Jorge Gr
--- NOTE | 2024-04-08 19:01 | Electrocardiogram Report ---
Test Reason : Blood Pressure : */* mmHG Vent. Rate : 70 BPM Atrial Rate : 70 BPM P-R Int : 104 ms QRS Dur : 90 ms QT Int : 376 ms P-R-T Axes : 43 82 54 degrees QTcB Int : 406 ms Sinus rhythm with short NH Nonspecific ST abnormality No previous ECGs available Confirmed by Jorge Gr ([id number] on 04/08/2024 7:01:11 PM Referred By: REFERRED SELF Confirmed By: Jorge Gr
--- NOTE | 2024-04-09 08:28 | Discharge Summary ---
Date of Service April 09, 2024 Admission HPI Per Admitting Provider 33-year-old male with no significant past medical history presents with chest pains and found to have elevated troponins. Patient states last Friday morning after he shoveled snow he felt somewhat off. Then in the afternoon he started to feel chest heaviness, shortness of breath, was feeling dizzy ,somewhat sweaty and numbness in the hands and feet. Then he had a episode of diarrhea and then vomiting. After vomiting his chest heaviness seems to improved and then he had another episode of vomiting. He thought he might had food poisoning. He woke up on Friday morning with some chest soreness which he thought was from vomiting and he took half dose of ibuprofen and another full dose of ibuprofen in the night and chest pain got resolved. Today he wanted to check out because of the chest pain and shortness of breath and came to the ER. Currently has some mild discomfort in the left side of the chest but otherwise no other symptoms. Micturating okay. Day afebrile. Denies any headache. No runny nose or sore throat. No cough. Is ambulating okay. Denies any chest discomfort while ambulating. No history of smoking. Currently resting comfortably and hemodynamically stable. Appetite is down since Friday. Past medical history. As mentioned above Past surgical history. No surgical history on file. Social history. Denies smoking. Alcohol 3 drinks a week. Denies any drug use. Family history. Mother had breast cancer. Skin cancer. Father had depression. Hearing loss. Maternal grandmother had migraines. Skin cancer. Maternal grandfather had bladder cancer. Paternal grandmother had skin cancer. Admission Exam Per Admitting Provider Physical Exam: General- Not in distress Head- atraumatic Eyes- PERRL. ENT- oropharynx clear Neck- supple, no JVD. Lungs- clear to auscultation no wheezing or crackles Heart- regular rate and rhythm; no murmur, no gallop. Abdomen- normal bowel sounds, soft, nontender, no distension. Extremities- no pretibial edema, no erythema seen. Neuro- alert, oriented ; PERRL, no facial palsy; no dysarthria; moves extremities. Principal Diagnosis Atypical chest pain, negative stress echo Discharge Exam Lying in bed without any acute distress Constitutional average body habitus; not ill appearing Eyes PERRL, conjunctivae normal, anicteric sclerae ENMT external ear and nose normal, oropharynx normal Neck trachea midline, no thyromegaly Respiratory no respiratory distress Auscultation: lungs clear to auscultation bilaterally Cardiovascular Rate/Rhythm: regular rate and regular rhythm; not tachycardic Heart Sounds: normal S1 and normal S2; no murmur Extremities: no edema Gastrointestinal (Abdomen) Inspection/Auscultation: normal bowel sounds; abdomen not distended Percussion/Palpation: abdomen soft; abdomen nontender Musculoskeletal no cyanosis or clubbing, extremities motor strength 5/5 Neurologic normal touch/pain/proprioception and moves all extremities; no focal motor deficits Lymphatic no cervical or axillary lymphadenopathy Discharge Data Allergies Allergy/AdvReac Type Severity Reaction Status Date / Time No Known Allergies Allergy Verified 04/07/24 18:50 Consultations 04/07/24 19:59 ED Decision to Admit Stat 04/08/24 08:00 Consult Cardiology Routine Hospital Course (1) Elevated troponin: 33-year-old male with no significant past medical history presents with chest pains and found to have elevated troponins. Patient states last Friday morning after he shoveled snow he felt somewhat off. Then in the afternoon he started to feel chest heaviness, shortness of breath, was feeling dizzy ,somewhat sweaty and numbness in the hands and feet. Then he had a episode of diarrhea and then vomiting. After vomiting his chest heaviness seems to improved and then he had another episode of vomiting. He thought he might had food poisoning. He woke up on Friday with some chest soreness which he thought was from vomiting and he took half dose of ibuprofen and another full dose of ibuprofen in the night and chest pain got resolved. Today he wanted to check out because of the chest pain and shortness of breath and came to the ER. Currently has some mild discomfort in the left side of the chest but otherwise no other symptoms. Micturating okay. Day afebrile. Denies any headache. No runny nose or sore throat. No cough. Is ambulating okay. Denies any chest discomfort while ambulating. No history of smoking. Currently resting comfortably and hemodynamically stable. Appetite is down since Friday. Presents with chest pain and shortness of breath Symptoms happened after snow shoveling EKG no acute findings Initial troponin 188 and subsequent troponins were unremarkable Got full dose aspirin in ER and started on IV heparin Remains free from any cardiac symptoms since admission and did not have any arrhythmias on monitor Appreciate cardiology input and recommendation Will have a stress echo this afternoon and likely discharge following that DVT prophylaxis On IV heparin Disposition Telemetry Full Code (2) Atypical chest pain: The chest pain could be musculoskeletal and atypical His symptoms started following a viral illness and also with exertion the pain was noted to be worse with sweating as well (3) Non-ST elevation [place] (NSTEMI): Mildly elevated troponin without any EKG changes Echocardiogram demonstrates normal LV function and wall motion without any events in telemetry Non-ST elevation [place] has been ruled out Total Time Total Time Spent Total Time Spent (In Minutes): 35 minutes Discharge Plan Discharge Items Patient Disposition: Home - Self-Care Reason For Visit: NSTEMI Discharge Diagnosis: Atypical chest pain, negative stress echo Condition on Discharge: Good Activity: Resume your previous activity Non-emergency contact: Primary Care Provider Call non-emergency contact if: you have any medication questions and your symptoms worsen Follow-up/Referrals: Megan Christian PA-C [Primary Care Provider] - 04/15/24 2:00 pm Diet: Heart Healthy Addtl Attending Provider Instructions: Please keep appointment with your healthcare provider. Pending Studies at Discharge: No Stand-Alone Forms: My [facility] Car reviews, Smoking Cessation Medications and DC Order Prescriptions: No Action No Known Home Medications Discharge Orders: Discharge Order (Routine); Ordered 04/08/24 Ordered By: Manan Carballo Admission Data Admit Date/Time: 04/07/24 20:44 Attending Provider: Manan Carballo Admit Provider: Joaquim Person Primary Care Provider: Megan Christian Other Providers: Joaquim Person; Chandler More Other Interventions: Discharge Summary Assessment (RN) Last Done: 04/08/24 16:14
== END 2024-04-08 18:07 | disposition home or self-care (01) | DRG 313 ==
LOC: ED 18:44 → 4W 20:44